=== PATIENT | female | born 1985 | race Caucasian/White ===

== ENCOUNTER 2017-07-14 10:43 | Emergency (ER) | payer OTHER ==
[~2017-07-14] VITALS: Ht 165.1 cm; Wt 60.8 kg
[~2017-07-14 10:43] MED LIST: BUSP10 PO; CITA20 PO; Crutch1 EACH MISC; DEXT30SU PO; Flonase 0.05% N16 GM; HYDPAM25 PO; Mucinex600 MG PO; Norco 5-325 Ta1 EACH PO; OMEP20ER PO
[2017-07-14] MEDS ORDERED: Omeprazole20 M1 PO (11:10)
[2018-05-04] MEDS ORDERED: KETO10 PO (12:31)
[2018-05-04] MEDS ORDERED: Zofran Odt4 MG SL (13:05)
== END 2017-07-14 11:41 | disposition home or self-care (01) ==
LOC: ER 10:43
DX: F41.9 Anxiety disorder, unspecified (principal); Z79.899 Other long term (current) drug therapy; F32.9 Major depressive disorder, single episode, unspecified; F17.200 Nicotine dependence, unspecified, uncomplicated
CPT/HCPCS: 99281

== ENCOUNTER → 2017-08-02 | Outpatient (CLI) | payer OTHER ==
[~2017-08-02] MED LIST changes: +KETO10 PO; +Omeprazole20 M1 PO; +Zofran Odt4 MG SL
[2017-08-02 17:31] LABS: BASOPHILS ABSOLUTE AUTO 0.05 K/mm3 (0.00-0.23); BASOPHILS PERCENT AUTO 1 % (0-2); EOSINOPHILS PERCENT AUTO 2 % (0-6); Hematocrit 36.6 % (33.0-51.0); Hemoglobin 12.6 g/dL (11.5-16.0); IMMATURE GRAN ABSOLUTE AUTO 0.02 K/mm3 (0.00-0.10); IMMATURE GRAN PERCENT AUTO 0 % (0-1); LYMPHOCYTES ABSOLUTE AUTO 2.23 K/mm3 (0.84-5.20); LYMPHOCYTES PERCENT AUTO 27 % (21-46); MONOCYTES ABSOLUTE AUTO 0.61 K/mm3 (0.16-1.47); MONOCYTES PERCENT AUTO 8 % (4-13); Mean Corpuscular HGB 29.8 pg (26.0-34.0); Mean Corpuscular HGB Conc 34.4 g/dL (31.5-36.5); Mean Corpuscular Volume 87 fL (80-100); Mean Platelet Volume 10.3 fL (9.1-12.4); NEUTROPHILS ABSOLUTE AUTO 5.07 K/mm3 (1.96-9.15); NEUTROPHILS PERCENT AUTO 62 % (41-73); Platelet Count 247 K/mm3 (150-400); RDW Coefficient Variation 12.9 % (11.7-14.2); RDW Standard Deviation 40.5 fL (35.1-46.3); Red Blood Cell Count 4.23 M/mm3 (3.80-5.20); White Blood Cell Count 8.18 K/mm3 (4.00-11.30)
[2017-08-02 17:40] LABS: Anion Gap 11 mmol/L (6-16); Blood Urea Nitrogen 11 mg/dL (8-24); Bun/Creatinine Ratio 14.7 (12.0-20.0); CO2, Blood 23 mmol/L (21-32); Calcium, Blood 8.8 mg/dL (8.5-10.1); Chloride, Blood 104 mmol/L (98-108); Creatinine, Blood 0.75 mg/dL (0.40-1.00); Glomerular Filtration Rate >60 (60-); Glucose, Blood 82 mg/dL (70-99); Potassium, Blood 3.5 mmol/L (3.5-5.5); Sodium, Blood 138 mmol/L (136-145)
== END | disposition home or self-care (01) ==
LOC: LAB EV 17:28
PROVIDERS: Physician Assistant Surgical
DX: R10.31 Right lower quadrant pain (principal)
CPT/HCPCS: 80048; 85025

== ENCOUNTER 2017-08-06 09:56 | Day surgery (SDC) | payer OTHER ==
[~2017-08-06] VITALS: Ht 165.1 cm; Wt 60.8 kg
[~2017-08-06 09:56] MED LIST changes: -KETO10 PO; -Zofran Odt4 MG SL
[2018-05-04] MEDS ORDERED: KETO10 PO (12:31)
[2018-05-04] MEDS ORDERED: Zofran Odt4 MG SL (13:05)
== END 2017-08-06 12:37 | disposition home or self-care (01) ==
LOC: ORSCMMR 09:56
PROVIDERS: Internal Medicine Gastroenterology
PROC: 0DB98ZX Excision of Duodenum, Via Natural or Artificial Opening Endoscopic, Diagnostic (ICD-10-PCS; principal; 2017-08-06 11:00)
PROC: 0DB68ZX Excision of Stomach, Via Natural or Artificial Opening Endoscopic, Diagnostic (ICD-10-PCS; principal; 2017-08-06 11:00)
DX: R10.13 Epigastric pain (principal); F41.1 Generalized anxiety disorder; J45.909 Unspecified asthma, uncomplicated; F17.210 Nicotine dependence, cigarettes, uncomplicated; Z79.3 Long term (current) use of hormonal contraceptives; Z79.899 Other long term (current) drug therapy
CPT/HCPCS: 88305; 88342; J7120

== ENCOUNTER 2018-04-25 01:26 | Emergency (ER) | payer OTHER ==
[~2018-04-25] VITALS: Ht 165.1 cm; Wt 52.2 kg
[2018-04-25 02:03] LABS: BASOPHILS ABSOLUTE AUTO 0.08 K/mm3 (0.00-0.23); BASOPHILS PERCENT AUTO 1 % (0-2); EOSINOPHILS ABSOLUTE AUTO 0.29 K/mm3 (0.00-0.68); EOSINOPHILS PERCENT AUTO 2 % (0-6); Hematocrit 41.1 % (33.0-51.0); Hemoglobin 13.8 g/dL (11.5-16.0); IMMATURE GRAN ABSOLUTE AUTO 0.06 K/mm3 (0.00-0.10); IMMATURE GRAN PERCENT AUTO 1 % (0-1); LYMPHOCYTES ABSOLUTE AUTO 3.43 K/mm3 (0.84-5.20); LYMPHOCYTES PERCENT AUTO 26 % (21-46); MONOCYTES PERCENT AUTO 8 % (4-13); Mean Corpuscular HGB 29.9 pg (26.0-34.0); Mean Corpuscular HGB Conc 33.6 g/dL (31.5-36.5); Mean Corpuscular Volume 89 fL (80-100); Mean Platelet Volume 9.9 fL (9.1-12.4); NEUTROPHILS ABSOLUTE AUTO 8.13 K/mm3 (1.96-9.15); NEUTROPHILS PERCENT AUTO 63 % (41-73); Platelet Count 347 K/mm3 (150-400); RDW Coefficient Variation 12.6 % (11.7-14.2); RDW Standard Deviation 41.1 fL (35.1-46.3); Red Blood Cell Count 4.62 M/mm3 (3.80-5.20); White Blood Cell Count 12.99 K/mm3 (4.00-11.30)
[2018-04-25 02:21] LABS: Alanine Aminotransfer (ALT/SGP 28 U/L (12-78); Albumin, Blood 3.5 g/dL (3.4-5.0); Alk Phos 61 U/L (50-136); Anion Gap 9 mmol/L (6-16); Aspartate Aminotrans (AST/SGOT 24 U/L (12-37); Bilirubin, Total 0.2 mg/dL (0.1-1.0); Blood Urea Nitrogen 8 mg/dL (8-24); Bun/Creatinine Ratio 15.7 (12.0-20.0); CO2, Blood 24 mmol/L (21-32); Calcium, Blood 8.3 mg/dL (8.5-10.1); Chloride, Blood 105 mmol/L (98-108); Creatinine, Blood 0.51 mg/dL (0.40-1.00); Globulin, Blood 3.6 g/dL (2.2-4.0); Glomerular Filtration Rate >60 (60-); Glucose, Blood 110 mg/dL (70-99); Sodium, Blood 138 mmol/L (136-145); Total Protein, Blood 7.1 g/dL (6.4-8.2)
[2018-04-25 02:44] LABS: Beta HCG, Quantitative, Serum 109410 mIU/mL (0-3)
== END 2018-04-25 03:55 | disposition home or self-care (01) ==
LOC: ER 01:26
PROVIDERS: Emergency Medicine
DX: O03.4 Incomplete spontaneous abortion without complication (principal); F32.9 Major depressive disorder, single episode, unspecified; F17.200 Nicotine dependence, unspecified, uncomplicated; Z79.899 Other long term (current) drug therapy; Z3A.15 15 weeks gestation of pregnancy
CPT/HCPCS: 36415; 76801; 80053; 84702; 85025; 96374; 96375; 99284-25; J2060; J3010; J7030

== ENCOUNTER 2019-03-24 15:58 | Emergency (ER) | payer SELFPAY ==
[~2019-03-24 15:58] MED LIST changes: +KETO10 PO; +Zofran Odt4 MG SL
== END 2019-03-24 16:40 | disposition left against medical advice (07) ==
LOC: ER 15:58
DX: Z53.21 Procedure and treatment not carried out due to patient leaving prior to being seen by health care provider (principal)

== ENCOUNTER 2019-08-24 04:56 | Emergency (ER) | payer SELFPAY | END 2019-08-24 06:03 | disposition left against medical advice (07) | LOC: ER 04:56 | DX: Z53.21 Procedure and treatment not carried out due to patient leaving prior to being seen by health care provider (principal) ==

== ENCOUNTER 2019-11-15 17:47 | Emergency (ER) | payer OTHER ==
[~2019-11-15] VITALS: Ht 162.6 cm; Wt 61.2 kg
[2019-11-15] MEDS ORDERED: Norco 5-325 Ta1 EACH PO (18:48)
== END 2019-11-15 19:10 | disposition home or self-care (01) ==
LOC: ER 17:47
DX: S00.83XA Contusion of other part of head, initial encounter (principal); M25.511 Pain in right shoulder; M25.561 Pain in right knee; M25.562 Pain in left knee; F17.210 Nicotine dependence, cigarettes, uncomplicated; V89.2XXA Person injured in unspecified motor-vehicle accident, traffic, initial encounter
CPT/HCPCS: 84702; 84703; 99284; A9270-GY